=== PATIENT | male | born 1960 | race Caucasian/White ===

== ENCOUNTER → 2018-03-28 | Outpatient (CLI) | payer OTHER ==
--- NOTE | 2018-03-29 10:12 | ECHOF ---
Referral Reason:R06.02 Shortness of breath MEASUREMENTS -------- HEIGHT: 182.9 cm WEIGHT: 103.9 kg BP: RVIDd: 2.7 cm (< 3.3) IVSd: 1.3 cm (0.6 - 1.1) LVIDd: 4.3 cm (3.9 - 5.3) LVPWd: 1.2 cm (0.6 - 1.1) IVSs: 1.5 cm LVIDs: 3.1 cm LVPWs: 1.5 cm LA Diam: 3.1 cm (2.7 - 3.8) Ao Diam: 3.4 cm (2.0 - 3.7) AV Cusp: 2.2 cm (1.5 - 2.6) LA Diam: 3.3 cm (2.7 - 3.8) MV EXCURSION: 10.759 mm (> 18.000) MV EF SLOPE: 82 mm/s (70 - 150) EPSS: 0.3 cm MV E Polo: 0.33 m/s MV DecT: 214 ms MV A Polo: 0.68 m/s MV E/A Ratio: 0.49 RAP: 5.00 mmHg RVSP: 10.74 mmHg FINDINGS -------- Sinus rhythm. This was a technically adequate study. The left ventricular size is normal. There is mild concentric left ventricular hypertrophy. Overa ll left ventricular systolic function is normal with, an EF between 55 - 60 %. The right ventricle is normal in size. The left atrial size is normal. The right atrial size is normal. The aortic valve is trileaflet, and appears structurally normal. No aortic stenosis or regurgitation. Mild mitral annular calcification present. Mild mitral regurgitation is present. Mild tricuspid regurgitation present. There is no evidence of pulmonary hypertension. The right v entricular systolic pressure, as measured by Doppler, is 10.74mmHg. There is no pulmonic regurgitation present. The aortic root size is normal. Echo free space represents a pericardial fat pad. CONCLUSIONS -------- 1. This was a technically adequate study. 2. The left ventricular size is normal. 3. There is mild concentric left ventricular hypertrophy. 4. Overall left ventricular systolic function is normal with, an EF between 55 - 60 %. 5. The aortic valve is trileaflet, and appears structurally normal. No aortic stenosis or regurgitati on. 6. Mild mitral annular calcification present. 7. Mild mitral regurgitation is present. 8. Mild tricuspid regurgitation present. 9. There is no evidence of pulmonary hypertension. 10. The right ventricular systolic pressure, as measured by Doppler, is 10.74mmHg. 11. There is no pulmonic regurgitation present. 12. The aortic root size is normal. 13. Echo free space represents a pericardial fat pad. [employer]: Doris Valles RDCS
== END | disposition home or self-care (01) ==
LOC: RADECHMAIN 12:23
PROVIDERS: ATTEND Family Medicine
DX: I08.1 Rheumatic disorders of both mitral and tricuspid valves (principal)
CPT/HCPCS: 93306

== ENCOUNTER → 2019-07-28 | Day surgery (SDC) | payer OTHER ==
[2019-07-23 15:52] VITALS: BMI 28.5
[~2019-07-28] MED LIST: LACTATED RINGERS 1,000 ML IV SCH; LIDOCAINE 1% 20 ML VIAL (10MG/ML) FOR IV START INTRADERMA ONE; LIDOCAINE 1% INJ 10MG/ML (20 ML MDV) ONE; PROPOFOL 10 MG/ML 20 ML VIAL IV ONE
[2019-07-28 09:44] VITALS: TEMP 97.9
--- NOTE | 2019-07-28 11:20 | P.PCN ---
Date of Procedure: 07/28/19 Description of Procedure: BRIEF HISTORY: Patient is a 58-year-old pleasant male scheduled for an elective colonoscopy as a part of screening for malignant neoplasm of the colon. On questioning the patient does report prior colonoscopies with his last 3 years ago per his recollection denies any change in bowel habits, blood per rectum, abdominal pain and a family history of colon cancer PROCEDURE PERFORMED: Colonoscopy with polypectomy. PREOPERATIVE DIAGNOSIS: Screening for malignant neoplasm of the colon. ESTIMATED BLOOD LOSS: Minimal. IV sedation per Anesthesia. PROCEDURE: After informed consent was obtained, the patient, was brought into the endoscopy unit. IV sedation was administered by Anesthesia under continuous monitoring. Digital rectal examination was normal. Initially the Olympus CF-190 flexible video colonoscope was then inserted in the rectum, gradually advanced into the cecum without any difficulty. Careful examination was performed as the scope was gradually being withdrawn. Ileocecal valve and the appendiceal orifice were visualized and appeared normal. Prep was excellent. Mucosa of the cecum, ascending colon, transverse colon, descending colon, sigmoid colon, and rectum appeared normal. Diminutive 2 mm cecal polyp removed with cold forcep polypect wenceslao. 2 diminutive sessile rectal polyps removed with forceps polypectomy. Retroflexion was performed in the rectum and no lesions were seen. The patient tolerated the procedure well. IMPRESSION: 3 diminutive polyps cecum and rectum were removed with cold forceps. Normal-appearing colon from rectum to cecum. RECOMMENDATIONS: Findings of this examination were discussed with the patient and his parents. Okay to resume diet. Await pathology from polypectomies. Repeat colonoscopy in 3-5 years pending pathology from polypectomys.
[2019-07-28 11:38] VITALS: BP 120/79; PULSE 82; RESP 18
== END | disposition home or self-care (01) ==
LOC: ORWHC2ENDO 09:19
PROVIDERS: ATTEND Internal Medicine
DX: Z12.11 Encounter for screening for malignant neoplasm of colon (principal); D12.0 Benign neoplasm of cecum; K63.5 Polyp of colon; K21.9 Gastro-esophageal reflux disease without esophagitis; D86.9 Sarcoidosis, unspecified; F17.210 Nicotine dependence, cigarettes, uncomplicated; Z88.5 Allergy status to narcotic agent; Z79.899 Other long term (current) drug therapy
CPT/HCPCS: 88305; 45380; J2001; J2704

== ENCOUNTER → 2021-07-14 | Outpatient (CLI) | payer OTHER ==
--- NOTE | 2021-07-15 08:58 | CTL ---
EXAMINATION TYPE: CT Low Dose Lung DATE OF EXAM ORDERED: 07/14/2021 HISTORY: 60-year-old male Lung cancer screening. Z87.891 Personal history of tobacco use CT DLP: 98.[address] CTDI: 2.6 mGy Automated exposure control for dose reduction was used. SCREENING VISIT: Baseline COMPARISON: None TECHNIQUE: Low dose computed tomography scan was performed through the chest with coronal and sagitta l reconstructions. CT DIAGNOSTIC QUALITY: Satisfactory FINDINGS: Heart normal size without pericardial effusion. Aorta normal caliber with conventional arch vessel branching anatomy. Scattered nonenlarged and borderline sized mediastinal lymph nodes, largest lower right paratracheal measuring 1 cm, probably reactive/post inflammatory. Mild bilateral gynecomastia. Benign calcified granuloma posterior right midlung. Mild emphysematous change. Mild diffuse bronchial wall thickening. 1 cm peripheral right midlung pulmonary nodule, axial image 126 with some contiguous 6 mm nodularity, axial image 125. Couple 5 mm satellite nodules are present, axial image 120 and 130 just adjacent. Minimal biapical pleural-parenchymal scarring. No consolidation or pleural effusion. Visualized upper abdomen shows low-attenuation of the hepatic parenchyma suggesting fatty infiltratio n. Questionable 1.7 cm density in the mid liver, axial image 66. Bones: No osseous destructive process. IMPRESSION: 1. LungRADS Category 4A ( Probably suspicious, 5-15% chance of malignancy). A 1 cm right midlung nodu le with contiguous 6 mm nodularity and a couple 5 mm satellite nodules just adjacent. Three-month fol low-up low-dose CT chest recommended to exclude early neoplasm. 2. COPD with mild emphysema. Recommend smoking cessation. 3. Hepatic steatosis. Questionable 1.7 cm lesion mid liver more inferiorly partially imaged. CT LUNG RAD AND CT CHEST RECOMMENDATION: Lung-Rad 4A Suspicious: Follow-up 3 month LDCT or PET/CT may be used when there is a > 8 mm solid component. S Modifier (other clinically significant findings): S, liver ultrasound recommended.
== END | disposition home or self-care (01) ==
LOC: RADCTMAIN 17:28
DX: R91.1 Solitary pulmonary nodule (principal); J43.9 Emphysema, unspecified; K76.0 Fatty (change of) liver, not elsewhere classified; Z87.891 Personal history of nicotine dependence
CPT/HCPCS: 71271

== ENCOUNTER → 2021-11-18 | Outpatient (CLI) | payer OTHER ==
--- NOTE | 2021-11-18 12:59 | CT ---
EXAMINATION TYPE: CT ChestAbdPelvis w con DATE OF EXAM: 11/18/2021 COMPARISON: 07/14/2020 HISTORY: Solitary pulmonary nodule, liver disease CT DLP: 2243.3 mGycm CONTRAST: CT scan of the chest, abdomen and pelvis is performed with Oral Contrast and with IV Contrast, patien t injected with 100 mL of Isovue 300. CT Chest: LUNGS: 1.1 cm nodule right upper lobe image 15 of 57. The prior measurement of 1 cm. Stable and 9.4 m m nodule right upper lobe persists 9.8 mm previously. Adjacent 4 mm nodule is unchanged as well as an adjacent 3 mm nodule. No new nodules identified. Postinflammatory change right upper lobe medially and right middle lobe. Lingular postinflammatory ch anges noted. MEDIASTINUM: Thoracic aorta is of normal caliber. The heart is not enlarged. No evidence for media stinal mass or adenopathy. HILAR STRUCTURES: No evidence for mass. No hilar adenopathy is appreciated. OTHER: No significant abnormality. CONTRAST CT ABDOMEN AND PELVIS FINDINGS: LIVER/GB: There is evidence of hepatic steatosis. Hemangioma present in the medial segment left hepa tic lobe measuring 1.6 cm. No calcified gallstones. No additional space occupying hepatic lesion. Bi liary tree is of normal caliber. PANCREAS: No inflammation. No distinct mass. SPLEEN: No splenic enlargement. No lesion seen. ADRENALS: No nodule. No thickening. KIDNEYS/BLADDER: No hydronephrosis. No nephrolithiasis. Simple cyst upper pole left kidney measures 2.5 cm. BOWEL: Normal appendix. Normal bowel caliber. No inflammation. GENITAL ORGANS: No gross abnormality. LYMPH NODES: No greater than 1cm abdominal or pelvic lymph nodes are appreciated. AORTA: No significant abnormality. OSSEOUS STRUCTURES: No significant abnormality is seen. OTHER: No significant additional abnormality is seen. IMPRESSION: 1. Stable nodularity as noted above continued follow-up is advised with low dose CT in 3 months. 2. Hepatic steatosis and hepatic hemangioma.
== END | disposition home or self-care (01) ==
LOC: RADCTMAIN 10:37
DX: D18.00 Hemangioma unspecified site (principal); K76.0 Fatty (change of) liver, not elsewhere classified
CPT/HCPCS: 71260; 74177; Q9967

== ENCOUNTER → 2022-07-17 | Outpatient (CLI) | payer OTHER ==
--- NOTE | 2022-07-17 14:36 | CTL ---
EXAMINATION TYPE: CT Low Dose Lung DATE OF EXAM ORDERED: 07/17/2022 COMPARISON: 07/14/21 HISTORY: . Low Dose CT Lung Screening CT DLP: [address] CTDI: 2.6 mGy IV CONTRAST USED: None. SCREENING VISIT: First visit COMPARISON: None. TECHNIQUE: Low dose computed tomography scan was performed through the chest at 1 millimeter thick se ctions and reconstructed images in the coronal plane at [address] DIAGNOSTIC QUALITY: Satisfactory FINDINGS: LUNG NODULES: Stable 9 mm right upper lobe pulmonary nodule image 120 02[birth year]/1976 versus 9.8 mm previous ly. A couple of sub-5 mm adjacent satellite pulmonary nodules. Stable nodularity right upper lobe rashi suring 1 cm image 86 of 376. Calcified pulmonary nodule right lower lobe pleural-based. No new nodule s present. LUNGS: COPD: Severity: Mild Fibrosis: Severity:None Lymph nodes: None Other findings: None RIGHT PLEURAL SPACE: Effusion: None Calcification: None Thickening: None Pneumothorax: None LEFT PLEURAL SPACE: Effusion: None Calcification: None Thickening: None Pneumothorax: None HEART: Heart Size: Mildly enlarged Coronary calcification: Mild Pericardial effusion: None OTHER FINDINGS: Upper abdomen: No significant abnormality Bony thorax: Degenerative changes Supraclavicular region: No significant abnormalityOther: No significant abnormalityI IMPRESSION: Stable nonspecific pulmonary nodularity. Given category 3 or 4 nodule unchanged for great er than or equal 3 months New Category is lung RADS 2. FOLLOW UP CT CHEST RECOMMENDATION: Follow-up screening in one year CT LUNG RAD: LUNG RAD CATEGORY 2 benign appearance or behavior
== END | disposition home or self-care (01) ==
LOC: RADCTMAIN 12:40
DX: Z12.2 Encounter for screening for malignant neoplasm of respiratory organs (principal); Z87.891 Personal history of nicotine dependence
CPT/HCPCS: 71271

== ENCOUNTER → 2022-11-06 | Outpatient (CLI) | payer OTHER ==
[2022-11-06 14:22] VITALS: BP 133/88; PULSE 84; RESP 18; TEMP 97.9
--- NOTE | 2022-11-06 15:02 | P.PAINPG ---
PQRS Measure Charge Sheet Comment: HISTORY OF PRESENT ILLNESS: 62 yr old male as a referral from the [facility] presents today w severe and chronic LBP secondary to DDD, spondylosis and facet arthropathy without myelopathy for evaluation. Pt states pain level is at 8 /10 in intensity, constant, localized in the neck to lower lumbar spine, sharp/shooting in character w shooting pain towards the BLEs. Pain is provoked by standing/walking for periods of 10 minutes or more, lifting, twisting, bending. Pain is alleviated by medications (Andrews 10/325 mg), heat, 3 sessions of PT in 2019 which were discontinued as he was experiencing lower extremity weakness and could not continue, massage therapy for sessions and 2019 which were ineffecti ve, home stretching regimen as tolerated, use of a cane for ambulation, repositioning and rest. Patient was provided a prescription for chiropractic treatments in the past but was rejected by the chiropractor. PMH: OA, Hyperlipidemia, GERD, Sarcoidosis PSH: Colonoscopy w Polypectomy (2018) SH: Daily tobacco use, No ETOH abuse, No illicit drug use. Hx of experience. FH: Non contributory All: Codeine Meds: See list REVIEW OF ORGAN SYSTEMS: CONSTITUTIONAL: No fevers or chills. No recent weight loss. NEUROLOGICAL: + numbness and tingling along the distal extremities. No seizure disorders or headaches. MUSCULOSKELETAL: + pain PSYCHIATRIC: Denies current depression or suicidal thoughts. Physical Examinations : Constitutional : Cooperative , not in acute distress . Neurologic : Cranial nerve II to XII intact. No focal neurological deficits. Psychiatric : alert & oriented x 3. Matching mood & appropriate affect. Judgment & insight intact. Musculoskeletal : Cervical Spine Motor strength in the deltoid and biceps: Normal right side. Normal Left side Motor strength biceps and the wrist extensors: Normal right side . Normal left side Motor strength in the triceps muscle: Normal right side. Normal left side Deep tendon reflexes: Normal at the biceps. Normal at Brachioradialis. Normal at triceps Vertebral body tenderness to deep palpation over Cervical facet loading test: positive bilaterally Spurling test: positive bilaterally Neck distraction test: positive bilaterally Kameron sign: positive bilaterally Lumbar spine Motor strength lower extremities ,thigh and legs 5/5 Right side , 5/5 Left side Deep tendon reflexes : Normal Knee Jerk. Normal Ankle Jerk Vertebral body tenderness over L3, L4, L5 Lumbar facet Loading Test: positive Right > positive Left Range of motion of the lumbar spine Flexion 30 degrees, extension 10 degrees Straight Leg Raise test: Left/ Right positive at degree Taniya test: positive right / positive left. Severe tenderness over the Sacroiliac joint on the Right / Left sides Gaenslen test: positive bilaterally Seated flexion test: positive bilaterally. Sacral spine : Severe tenderness over the Sacroiliac joint: right side / left side Range of motion: Flexion of the lumbar spine <60 degrees Range of motion: Extension of the lumbar spine <20 degrees Gaenslen's Test positive Vincenzo's Test positive Taniya test: positive right side / left side Thigh Thrust Test Sacral Thrust Test Imaging: None on file Assessment/ Plan : Lumbar DDD Recommendation of x ray of lumbar spine re: M51.36 script provided. May need additional testing if indicated. May return to this clinic within 2-4 wks. All questions answered. I have spent greater than 30 minutes on patient care today. Dr Arevalo was available by phone for the evaluation of this patient. The time was used to review the medical records including relevant urine studies and Prescription history (MAPs), review of the available imaging, evaluation and examination of the patient, coordination of care with the medical staff and if applicable referring physicians, as well as creation of the medical record PQRS Narrative: Smoking Status Current every day smoker Home Medications: Ambulatory Orders Gabapentin [Neurontin] 400 mg PO TID 07/23/19 HYDROcodone/APAP 10-325MG [Andrews 10-325] 1 tab PO Q4HR PRN 07/23/19 Indomethacin [Indocin] 50 mg PO TID 07/23/19 Omeprazole 20 mg PO DAILY PRN 07/23/19 SUMAtriptan succinate [Imitrex] 50 mg PO ONCE PRN 07/23/19 Controlled Substance Measures - Controlled Substance Measures Is patient prescribed a controlled substance at discharge?: No
--- NOTE | 2022-11-06 15:58 | XR ---
EXAMINATION TYPE: XR lumbar spine 2 or 3V DATE OF EXAM: 11/06/2022 COMPARISON: None HISTORY: Low back pain TECHNIQUE: 3 view lumbar spine FINDINGS: There are 5 lumbar-type vertebral bodies. Pedicles are intact. Disc space narrowing is pres ent L5-S1. Minimal posterior disc space narrowing is present L4-5. Vertebral body heights are preserv ed. IMPRESSION: 1. Degenerative disc changes lower lumbar spine
== END ==
LOC: PNWHC3 13:38
PROVIDERS: ATTEND Specialist
DX: M51.36 Other intervertebral disc degeneration, lumbar region (principal); M19.90 Unspecified osteoarthritis, unspecified site; E78.5 Hyperlipidemia, unspecified; K21.9 Gastro-esophageal reflux disease without esophagitis; Z88.5 Allergy status to narcotic agent; F17.200 Nicotine dependence, unspecified, uncomplicated
CPT/HCPCS: 72100; 99211

== ENCOUNTER → 2022-11-15 | Outpatient (CLI) | payer OTHER ==
--- NOTE | 2022-11-15 20:13 | MR ---
EXAMINATION TYPE: MR lumbar spine wo con DATE OF EXAM: 11/15/2022 8:07 PM COMPARISON: CT 11/18/2021 . CLINICAL INDICATION:Male, 62 years old with history of M51.36 INTERVERTEBRAL DISC DEGENERATION, LUMBA R RE; TECHNIQUE: Multi planar, multi sequence imaging was performed utilizing: T1-weighted, T2-weighted, a nd turbo inversion recovery imaging of the lumbar spine. IV Contrast: None. FINDINGS: Alignment: The lumbar vertebral bodies have preserved heights and alignment. Cord: The conus medullaris and the distal spinal cord appear unremarkable with regards to their signa l intensity and morphology. Bones/Discs: Scattered subcentimeter probable meningiomas which are high T1 high T2 signal within S1, L2 and T12. Multilevel degenerative disc disease is noted and most pronounced at the L5-S1. Interve rtebral disc signal is maintained. L1-L2: No evidence of significant spinal canal stenosis or neural foraminal stenosis. L2-L3: No evidence of significant spinal canal stenosis or neural foraminal stenosis. L3-L4: Disc bulge and facet joint arthropathy without spinal canal stenosis and mild bilateral neural foraminal stenosis. L4-L5: Disc bulge and facet joint arthropathy result in mild spinal canal and moderate bilateral neur al foraminal stenosis. L5-S1: Asymmetric right disc bulge with facet joint arthropathy without significant spinal canal sten osis moderate right and mild to moderate left neural foraminal stenosis. Other findings: Left high T2 signal renal cyst. IMPRESSION: 1. No definitive evidence of disc herniation or significant spinal canal stenosis. 2. Multilevel disc degeneration with associated osteoarthritic changes with neural foraminal stenosi s worse at L4-L5 and L5 5 S1.
== END | disposition home or self-care (01) ==
LOC: RADMRIMAIN 18:54
PROVIDERS: ATTEND Physician Assistant Medical
DX: M51.36 Other intervertebral disc degeneration, lumbar region (principal); M47.816 Spondylosis without myelopathy or radiculopathy, lumbar region; M48.061 Spinal stenosis, lumbar region without neurogenic claudication; M99.73 Connective tissue and disc stenosis of intervertebral foramina of lumbar region
CPT/HCPCS: 72148

== ENCOUNTER 2023-02-20 11:45 | Day surgery (SDC) | payer OTHER ==
[2023-02-16 15:19] VITALS: BMI 34.9
[~2023-02-20 11:45] MED LIST changes: +LIDOCAINE 1% (10MG/ML) FOR IV START INTRADERMA PRN; -LIDOCAINE 1% 20 ML VIAL (10MG/ML) FOR IV START INTRADERMA ONE; -LIDOCAINE 1% INJ 10MG/ML (20 ML MDV) ONE; -PROPOFOL 10 MG/ML 20 ML VIAL IV ONE
[2023-02-20 12:21] VITALS: RESP 18; TEMP 97.4
[2023-02-20] MEDS ORDERED: methylPREDNISolone ACETATE 80 MG/ML 1 ML VIAL ONE (12:44)
[2023-02-20] MEDS ORDERED: IOPAMIDOL M200 10 ML VIAL ONE (12:44)
--- NOTE | 2023-02-20 12:53 | P.PCN ---
Date of Procedure: 02/20/23 Procedure(s) Performed: PREOPERATIVE DIAGNOSIS: 1- Lumbar Degenerative Disc Diseases 2-Lumbar spondylosis with Facet arthropathy without myelopathy. POSTOPERATIVE DIAGNOSIS: 1-lumbar degenerative disc disease. 2-lumbar spondylosis with facet arthropathy without myelopathy. PROCEDURE 1. Lumbar epidural steroid injection under fluoroscopic guidance at the L4-5 level. (Fluoroscopy imaging was available in radiology department) 2. Lumbar epidurogram. ANESTHESIA: The cane 1% 3 mL only EBL: Minimal PROCEDURE INDICATION: The patient with low back pain and radiculitis symptoms unresponsive to conservative treatment. Fluoroscopy was used to optimize visualization of the needle placement and to maximize safety. PROCEDURE DESCRIPTION / TECHNIQUE: The patient was seen and identified in the preoperative area. Risks, benefits, complications including but not limited to infections ,bleeding ,allergic reaction to the medications ,nerve damage and not complete pain releife , and alternatives were discussed with the patient. The patient agreed to proceed with the procedure and signed the consent, and vital signs were stable. Patient was taken to the OR and time out was completed. The patient was placed in the prone position on procedure table and a pillow was placed under the abdomen to reduce lumbar lordosis. The lumbosacral area was prepped and draped in the usual sterile fashion.ere closely monitored during the procedure.. Vital signs was monitered during the entire procedure. Using anterior-posterior fluoroscopy, the L4-5 interlaminar space was identified and the skin over this site was marked and then infiltrated with 1% lidocaine subcutaneously. Subsequently, a 20-gauge Tuohy epidural needle was inserted and advanced toward the epidural space using the ``Loss of resistance technique and guided by AP and lateral fluoroscopy. The correct needle position in the epidural space was verified with the injection of 2 mL of the water soluble contrast dye Isovue 200 contrast and observing an excellent epidurogram with the epidural spread of the dye, after negative aspiration for blood and CSF and in the absence of paresthesias. Again after negative aspiration, a 6 ml mixture containing 80 mg of Depo-medrol ( Preservetive Free ), and 2 ml of preservative free Normal Saline, and 2 ml of preservative free lidocaine 1% solution was injected and a washout of epidurogram was seen. Needle was withdrawn intact, skin was cleansed, and bandages were applied. COMPLICATIONS: None DISPOSITION / PLANS: The patient was placed in a supine position and transferred to the recovery area in a stable condition for observation. There was no evidence of lower extremity motor or sensory deficit after the procedure. Patient was discharged from the recovery room after meeting discharge criteria. Home discharge instructions were given to the patient by the staff. The patient was reexamined prior to discharge. The patient will schedule a follow up in the clinic in 2-4 weeks.
[2023-02-20 13:11] VITALS: BP 124/78; PULSE 75
--- NOTE | 2023-02-20 13:15 | FL ---
Intraoperative/procedural fluoroscopic services were provided for lumbar epidural steroid injection. Total fluoroscopy time is 1 second with a total of 1 submitted image to PACS. Total DAP 0.47. Please see the operative note for further details.
== END 2023-02-20 13:16 | disposition home or self-care (01) ==
LOC: ORPAIN 11:45
PROVIDERS: ATTEND Specialist
DX: M51.16 Intervertebral disc disorders with radiculopathy, lumbar region (principal); M47.26 Other spondylosis with radiculopathy, lumbar region; Z88.5 Allergy status to narcotic agent
CPT/HCPCS: 62323; J1040; Q9966

== ENCOUNTER → 2023-03-15 | Outpatient (CLI) | payer OTHER ==
--- NOTE | 2023-03-15 14:20 | P.PAINPG ---
PQRS Measure Charge Sheet Comment: A 62 yr old male with a history of severe and chronic LBP x yrs d/t injury secondary to lumbar DDD and spondylosis with facet arthropathy without myelopathy presents today for evaluation s/p AMINA L4-L5. Pt states he experienced 20% pain relief x 3 wks s/p procedure. Pain level is provoked at 6/10 in intensity, constant, localized in the lumbar spine, achy in character w shooting towards the BLEs. Pain is alleviated with medications (Clifton, Neurontin, Mobic), heat, ice, PT x 5 sessions in the past, massage at home as needed, use of a cane for ambulatory assistance, home exercise regimen as tolerated, reclining, repositioning and rest. Interventional pain procedures completed include AMINA L4-5 Patient is currently on Clifton TID, Neurontin, Mobic Patient denies any side effects of the medication(s), denies excessive drowsiness or sleepiness, denies suicidal ideation and reports that the current pain medication is helping to control the pain and improve activities of daily living. Patient denies any motor or sensory deficits. Patient denies any fever or night sweats, denies any change in the bowel movements or urination. Physical Examination: -Constitutional: Cooperative. Not in acute distress . - Neurologic: Cranial nerve II to XII intact. No focal neurological deficits. - Psychatric: Alert & oriented x 3. Matching mood & appropriate affect. Judgment and insight intact. - Musculoskeletal: Cervical spine: Muscle bulk/ tone/ strength in the bilateral upper extremities normal Vertebral body tenderness to palpation over Spurling test positive Distraction test positive Facet loading test positive TTP Thoracic spine Muscle bulk / tone/ strength in the bilateral paraspinal muscles normal Vertebral body tender to palpation over Facet loading test positive TTP Lumbar spine: Motor bulk/ tone/ strength lower extremities , thigh and legs : 5/5 Deep tendon reflexes : Normal Knee Jerk. Normal Ankle Jerk . Vertebral body tenderness to palpation over L5 Lumbar Facet Loading Test positive Straight Leg Raise: positive at 30 degrees right side/ left side Gaenslen's Test positive Sacral spine : Severe tenderness over the Sacroiliac joint: right side / left side Range of motion: Flexion of the lumbar spine <60 degrees Range of motion: Extension of the lumbar spine <20 degrees Gaenslen's Test positive right side / left side Taniya test: positive right side / left side Thigh Thrust Test positive right side / left side Sacral Thrust Test positive right side / left side Assessment and plan: Chronic LBP secondary to lumbar DDD, spondylosis with facet arthropathy without myelopathy Recommendation of BL TFESI L5-S1 #1. May need a series of injections for optimal pain relief. Risks, benefits of procedure discussed and pt verbalized understanding. Admits to anticoagulant use or medical history of diabetes. Protocol for discontinuation/ continuation of medications ilsa procedure discussed. All questions answered. I have spent less than 30 minutes on patient care today. Dr Arevalo was available by phone for the evaluation of this patient. The time was used to review the medical records including relevant urine studies and Prescription history (MAPs), review of the available imaging, evaluation and examination of the patient, coordination of care with the medical staff and if applicable referring physicians, as well as creation of the medical record PQRS Narrative: Smoking Status Current every day smoker Hx Alcohol Use (MH) No Home Medications: Ambulatory Orders Gabapentin [Neurontin] 400 mg PO TID 07/23/19 HYDROcodone/APAP 10-325MG [Clifton 10-325] 1 tab PO Q4HR PRN 07/23/19 Indomethacin [Indocin] 50 mg PO TID 07/23/19 Omeprazole 20 mg PO DAILY PRN 07/23/19 SUMAtriptan succinate [Imitrex] 50 mg PO ONCE PRN 07/23/19 Meloxicam [Mobic] 7.5 mg PO DAILY 02/16/23 Sinus Medication 1 tab PO DAILY PRN 02/16/23 Controlled Substance Measures - Controlled Substance Measures Is patient prescribed a controlled substance at discharge?: No
[2023-03-15 14:24] VITALS: BP 130/69; PULSE 82; RESP 16; TEMP 98.2
== END ==
LOC: PNWHC3 13:39
PROVIDERS: ATTEND Specialist
DX: M51.36 Other intervertebral disc degeneration, lumbar region (principal); M47.816 Spondylosis without myelopathy or radiculopathy, lumbar region; G89.29 Other chronic pain; F17.200 Nicotine dependence, unspecified, uncomplicated; Z88.5 Allergy status to narcotic agent
CPT/HCPCS: 99211

== ENCOUNTER 2023-05-15 12:34 | Day surgery (SDC) | payer OTHER ==
[2023-05-10 16:38] VITALS: BMI 33.9
[2023-05-15 13:20] VITALS: RESP 16; TEMP 97.5
[2023-05-15] MEDS ORDERED: IOPAMIDOL M200 10 ML VIAL ONE (13:31)
[2023-05-15] MEDS ORDERED: methylPREDNISolone ACETATE 80 MG/ML 1 ML VIAL ONE (13:31)
--- NOTE | 2023-05-15 13:46 | P.PCN ---
Date of Procedure: 05/15/23 Procedure(s) Performed: PREOPERATIVE DIAGNOSIS: 1-Lumbar radiculopathy . 2-lumbar degenerative disc disease. 3-lumbar spondylosis with lumbar facet arthropathy without myelopathy POSTOPERATIVE DIAGNOSIS: 1-lumbar radiculopathy. 2-lumbar degenerative disc disease. 3-lumbar spondylosis with facet arthropathy without myelopathy PROCEDURE 1. Transforaminal epidural steroid injection under fluoroscopic guidance at bilateral L5-S1 level. (Fluoroscopy images stored on file in the radiology Department ) 2. Lumbar epidurogram . ANESTHESIA: Local with 1% lidocaine 3 ml. EBL: Minimal PROCEDURE INDICATION: The patient with low back pain and radiculopathy symptoms unresponsive to conservative treatment. PROCEDURE DESCRIPTION / TECHNIQUE: The patient was seen and identified in the preoperative area. Risks, benefits, complications, and alternatives were discussed with the patient. The patient agreed to proceed with the procedure and signed the consent., and vital signs were stable. Patient was taken to the OR and time out was completed. The patient was placed in the prone position on procedure table and a pillow was placed under the abdomen to reduce lumbar lordosis. The lumbosacral area was prepped and draped in the usual sterile fashion. Critical pause was taken. Vital signs were closely monitored during the procedure. Using oblique fluoroscopy, the chin of the `IlanJose G dog at right L5-S1 level was identified, and the skin and deeper tissues just below was localized with 1% lidocaine. Subsequently, a 22-gauge 5-inch spinal needle was advanced under a tunneled view fluoroscopic guidance just underneath the chin of the `Niruy dog at the right L5-S1 Under lateral fluoroscopy, the needle was then advanced to the posterior border of the interforaminal space. After negative aspiration of CSF and blood and with no paresthesias, 1 mL Isovue 200 contrast dye was injected excellent epidurogram and outlining of the nerve root Subsequently, 3 mL of block solution containing 40 mg Depo-Medrol and 2 mL of 0.9% normal saline PF was injected. Needle was removed and the same procedure was repeated at the left L5-S1 level . At the end of the procedure, skin was cleansed, and bandages were applied. COMPLICATIONS:none DISPOSITION / PLANS: The patient was placed in a supine position and transferred to the recovery area in a stable condition for observation. There was no evidence of lower extremity motor or sensory deficit after the procedure. Patient was discharged from the recovery room after meeting discharge criteria. Home discharge instructions were given to the patient by the staff. The patient was reexamined prior to discharge.
--- NOTE | 2023-05-15 14:02 | FL ---
EXAMINATION TYPE: FL guided pain mgmt statistic DATE OF EXAM: 05/15/2023 CLINICAL HISTORY: Low back pain. TECHNIQUE: Fluoroscopy. COMPARISON: None. FINDINGS: Fluoroscopic guidance was provided during pain relief procedure performed by Dr. Arevalo . A total of 10 seconds of fluoroscopic time was utilized during the procedure and two spot images a re acquired. Images acquired shows needle localization with contrast injection in the periphery of t he L5 level. IMPRESSION: As Above. TOTAL DAP = 0.91803.
[2023-05-15 14:03] VITALS: BP 142/89; PULSE 79
== END 2023-05-15 14:15 | disposition home or self-care (01) ==
LOC: ORPAIN 12:34
PROVIDERS: ATTEND Specialist
DX: M51.16 Intervertebral disc disorders with radiculopathy, lumbar region (principal); M47.26 Other spondylosis with radiculopathy, lumbar region; Z88.5 Allergy status to narcotic agent
CPT/HCPCS: 64483; J1040; Q9966

== ENCOUNTER → 2023-06-04 | Outpatient (CLI) | payer OTHER ==
[2023-06-04 14:39] VITALS: BP 150/87; PULSE 87; RESP 16
--- NOTE | 2023-06-04 14:42 | P.PAINPG ---
PQRS Measure Charge Sheet Comment: A 62 yr old male with a history of severe and chronic LBP x 2 yrs d/t injury secondary to lumbar DDD and spondylosis with facet arthropathy without myelopathy presents today for evaluation s/p BL TFESI L5-S1. Pt states he experienced 20% pain relief x 3 wks s/p procedure. Pain level is provoked at 7/10 in intensity, constant, localized in the lumbar spine, throbbing in character w shooting towards the B hips. Pain is alleviated with medications, heat, ice, PT integrated w massage x 5 sessions in 2020 which provoked intense pain, massage at home as needed, use of a cane for ambulatory assistance, use of a TENS unit at home, physician guided home exercise regimen 2-4 times a week since 2020 as tolerated, reclining, repositioning and rest. Oswestry axial pain score of 31 Interventional pain procedures completed include AMINA L4-5, BL TFESI L5-S1 Patient is currently on [place] TID, Neurontin, Mobic Patient denies any side effects of the medication(s), denies excessive drowsiness or sleepiness, denies suicidal ideation and reports that the current pain medication is helping to control the pain and improve activities of daily living. Patient denies any motor or sensory deficits. Patient denies any fever or night sweats, denies any change in the bowel movements or urination. Physical Examination: -Constitutional: Cooperative. Not in acute distress . - Neurologic: Cranial nerve II to XII intact. No focal neurological deficits. - Psychatric: Alert & oriented x 3. Matching mood & appropriate affect. Judgment and insight intact. - Musculoskeletal: Cervical spine: Muscle bulk/ tone/ strength in the bilateral upper extremities normal Vertebral body tenderness to palpation over Spurling test positive Distraction test positive Facet loading test positive TTP Thoracic spine Muscle bulk / tone/ strength in the bilateral paraspinal muscles normal Vertebral body tender to palpation over Facet loading test positive TTP Lumbar spine: Motor bulk/ tone/ strength lower extremities , thigh and legs : 5/5 Deep tendon reflexes : Normal Knee Jerk. Normal Ankle Jerk . Vertebral body tenderness to palpation Lumbar Facet Loading Test positive over BL L4-L5, L5-S1 Straight Leg Raise: positive at 30 degrees right side/ left side Gaenslen's Test positive Sacral spine : Severe tenderness over the Sacroiliac joint: right side / left side Range of motion: Flexion of the lumbar spine <60 degrees Range of motion: Extension of the lumbar spine <20 degrees Gaenslen's Test positive right side / left side Taniya test: positive right side / left side Thigh Thrust Test positive right side / left side Sacral Thrust Test positive right side / left side Assessment and plan: Chronic LBP secondary to lumbar DDD, spondylosis with facet arthropathy without myelopathy Recommendation of BL facet block of the medial branches L4-L5, L5-S1. May need a series of injections, up until RFA, for optimal pain relief. Risks, benefits of procedure discussed and pt verbalized understanding. Admits to anticoagulant use or medical history of diabetes. Protocol for discontinuation/ continuation of medications ilsa procedure discussed. All questions answered. I have spent less than 30 minutes on patient care today. Dr Arevalo was available by phone for the evaluation of this patient. The time was used to review the medical records including relevant urine studies and Prescription history (MAPs), review of the available imaging, evaluation and examination of the patient, coordination of care with the medical staff and if applicable referring physicians, as well as creation of the medical record PQRS Narrative: Smoking Status Current every day smoker Hx Alcohol Use (MH) No Home Medications: Ambulatory Orders Gabapentin [Neurontin] 400 mg PO TID 07/23/19 HYDROcodone/APAP 10-325MG [[place] 10-325] 1 tab PO Q4HR PRN 07/23/19 Indomethacin [Indocin] 50 mg PO TID 07/23/19 Omeprazole 20 mg PO DAILY PRN 07/23/19 SUMAtriptan succinate [Imitrex] 50 mg PO ONCE PRN 07/23/19 Meloxicam [Mobic] 7.5 mg PO DAILY 02/16/23 Sinus Medication 1 tab PO DAILY PRN 02/16/23 Controlled Substance Measures - Controlled Substance Measures Is patient prescribed a controlled substance at discharge?: No
== END ==
LOC: PNWHC3 13:59
PROVIDERS: ATTEND Specialist
DX: M51.37 Other intervertebral disc degeneration, lumbosacral region (principal); M47.817 Spondylosis without myelopathy or radiculopathy, lumbosacral region; G89.29 Other chronic pain; F17.200 Nicotine dependence, unspecified, uncomplicated; Z88.5 Allergy status to narcotic agent
CPT/HCPCS: 99211

== ENCOUNTER 2023-06-21 10:04 | Day surgery (SDC) | payer OTHER ==
[2023-06-21 10:25] VITALS: TEMP 97.1
[2023-06-21] MEDS ORDERED: methylPREDNISolone ACETATE 40 MG/ML 1 ML VIAL ONE (10:48)
[2023-06-21] MEDS ORDERED: ROPIVACAINE 5 MG/ML 20 ML AMPULE ONE (10:48)
--- NOTE | 2023-06-21 11:01 | P.PCN ---
Date of Procedure: 06/21/23 Procedure(s) Performed: PREOPERATIVE DIAGNOSIS : 1- Lumbar spondylosis with Facet Arthropathy without myelopathy . 2- Lumber degenerative disc disease POSTOPERATIVE DIAGNOSIS: 1- Lumbar spondylosis with Facet Arthropathy without myelopathy . 2- Lumber degenerative disc disease PROCEDURE: Diagnostic bilateral L3 , L4 , and L5 medial branch block under fluoroscopy guidance(fluoroscopy images available in the radiology Department ) ( To target the facet joint between Bilateral L4-5 , and L5-S1 )# 1St ANESTHESIA:, Ropivacaine 0.5% 6 mL for skin and subcu infiltration. EBL: Minimal COMPLICATION: None PROCEDURE INDICATION: Chronic low back pain secondary to Facet arthropathy unresponsive to conservative treatment. PROCEDURE DESCRIPTION: the patient was seen and identified in the preop holding area , risks and benefits and possible complications of the procedure and alternative were discussed with the patient, and the patient agreed to proceed with the procedure and signed the consent and vital signs monitored during the procedure and fluoroscopy was used to maximize the benefit and accuracy of the needle placement, and sedation was given to decrease patient anxiety, patient was taken to the procedure room and placed in prone position vital signs monitored in the back prepped with chlorhexidine X3 then under strict sterile technique using a right oblique fluoroscopy ,the junction of the transverse process and the superior articulating process of the right L3 , L4 , and L5 vertebra which corresponding to the fluoroscopy image of the eye of the Jose G dog on the block side for the medial branches and subsequently , after local infiltration of skin and subcu tissuies with Ropivacaine 0.5 % , one mL at each level ,then 22-gauge Quincke-type needles , 3 needle was used , each one of them placed at the junction of the base of the transverse process and the superior articular process at the appropriate level, and the needle was advanced until the periosteum contacted, needle placement confirmed with AP oblique and lateral view and after appropriate needle placement confirmed, and after negative aspiration for heme and CSF and there was no paresthesia 1-1/2 mL of Ropivacaine 0.5% mixed with 20 mg Depo-Medrol , then half mL injected at each level after negative aspiration the needle subsequently removed and the same procedure repeated for the left side at left side at L3 , L4 and L5 levels. At the end of the procedure and the needles removed and a bandage applied after the skin was cleaned the cleaning solution patient taken to recovery room in stable condition and monitors in the recovery room for 20-30 minutes and discharged home in stable condition after discharge criteria met and patient will follow up with the pain clinic in 2-4 weeks
[2023-06-21 11:04] VITALS: BP 122/78; PULSE 73; RESP 16
--- NOTE | 2023-06-21 11:35 | FL ---
Intraoperative/procedural fluoroscopic services were provided for bilateral lumbar facet block. Total fluoroscopy time is 21.4 seconds with a total of 4 submitted images to PACS. Total DAP 0.15062 mGym2 . Please see the operative note for further details.
== END 2023-06-21 11:17 | disposition home or self-care (01) ==
LOC: ORPAIN 10:04
PROVIDERS: ATTEND Anesthesiology
DX: M51.36 Other intervertebral disc degeneration, lumbar region (principal); M47.816 Spondylosis without myelopathy or radiculopathy, lumbar region; G89.29 Other chronic pain; Z88.5 Allergy status to narcotic agent
CPT/HCPCS: 64493; 64494 ×2; J1030; J2795

== ENCOUNTER → 2023-07-16 | Outpatient (CLI) | payer OTHER ==
[2023-07-16 14:07] VITALS: BP 133/71; PULSE 82; RESP 15; TEMP 98
--- NOTE | 2023-07-16 15:06 | P.PAINPG ---
PQRS Measure Charge Sheet Comment: A 62 yr old male with a history of severe and chronic LBP x 2 yrs d/t injury secondary to lumbar DDD and spondylosis with facet arthropathy without myelopathy presents today for evaluation s/p BL TFESI L5-S1 #1. Pt states he experienced 80% pain relief x 24 hrs s/p procedure. Pain level is provoked at 7/10 in intensity, constant, localized in the lumbar spine, throbbing in character w shooting towards the B hips. Pain is alleviated with medications, heat, ice, PT integrated w massage x 5 sessions in 2020 which provoked intense pain, massage at home as needed, use of a cane for ambulatory assistance, use of a TENS unit at home, physician guided home exercise regimen 2-4 times a week since 2020 as tolerated, reclining, repositioning and rest. Oswestry axial pain score of 30. Interventional pain procedures completed include AMINA L4-5, BL TFESI L5-S1, BL MBB L3-L5 x1 Patient is currently on [place] TID, Neurontin, Mobic Patient denies any side effects of the medication(s), denies excessive drowsiness or sleepiness, denies suicidal ideation and reports that the current pain medication is helping to control the pain and improve activities of daily living. Patient denies any motor or sensory deficits. Patient denies any fever or night sweats, denies any change in the bowel movements or urination. Physical Examination: -Constitutional: Cooperative. Not in acute distress . - Neurologic: Cranial nerve II to XII intact. No focal neurological deficits. - Psychatric: Alert & oriented x 3. Matching mood & appropriate affect. Judgment and insight intact. - Musculoskeletal: Cervical spine: Muscle bulk/ tone/ strength in the bilateral upper extremities normal Vertebral body tenderness to palpation over Spurling test positive Distraction test positive Facet loading test positive TTP Thoracic spine Muscle bulk / tone/ strength in the bilateral paraspinal muscles normal Vertebral body tender to palpation over Facet loading test positive TTP Lumbar spine: Motor bulk/ tone/ strength lower extremities , thigh and legs : 5/5 Deep tendon reflexes : Normal Knee Jerk. Normal Ankle Jerk . Vertebral body tenderness to palpation Lumbar Facet Loading Test positive over BL L4-L5, L5-S1 Straight Leg Raise: positive at 30 degrees right side/ left side Gaenslen's Test positive Sacral spine : Severe tenderness over the Sacroiliac joint: right side / left side Range of motion: Flexion of the lumbar spine <60 degrees Range of motion: Extension of the lumbar spine <20 degrees Gaenslen's Test positive right side / left side Taniya test: positive right side / left side Thigh Thrust Test positive right side / left side Sacral Thrust Test positive right side / left side Assessment and plan: Chronic LBP secondary to lumbar DDD, spondylosis with facet arthropathy without myelopathy Recommendation of BL facet block of the medial branches L4-L5, L5-S1 #2. May need a series of injections, up until RFA, for optimal pain relief. Risks, benefits of procedure discussed and pt verbalized understanding. Admits to anticoagulant use or medical history of diabetes. Protocol for discontinuation/ continuation of medications ilsa procedure discussed. All questions answered. I have spent less than 30 minutes on patient care today. Dr Arevalo was available by phone for the evaluation of this patient. The time was used to review the medical records including relevant urine studies and Prescription history (MAPs), review of the available imaging, evaluation and examination of the patient, coordination of care with the medical staff and if applicable referring physicians, as well as creation of the medical record PQRS Narrative: Smoking Status Current every day smoker Hx Alcohol Use (MH) No Home Medications: Ambulatory Orders Gabapentin [Neurontin] 400 mg PO TID 07/23/19 HYDROcodone/APAP 10-325MG [[place] 10-325] 1 tab PO Q4HR PRN 07/23/19 Indomethacin [Indocin] 50 mg PO TID 07/23/19 Omeprazole 20 mg PO DAILY PRN 07/23/19 SUMAtriptan succinate [Imitrex] 50 mg PO ONCE PRN 07/23/19 Meloxicam [Mobic] 7.5 mg PO DAILY 02/16/23 Sinus Medication 1 tab PO DAILY PRN 02/16/23 Controlled Substance Measures - Controlled Substance Measures Is patient prescribed a controlled substance at discharge?: No
== END ==
LOC: PNWHC3 13:36
PROVIDERS: ATTEND Specialist
DX: M51.37 Other intervertebral disc degeneration, lumbosacral region (principal); M47.817 Spondylosis without myelopathy or radiculopathy, lumbosacral region; F17.200 Nicotine dependence, unspecified, uncomplicated; G89.29 Other chronic pain; Z88.5 Allergy status to narcotic agent
CPT/HCPCS: 99211

== ENCOUNTER → 2023-07-25 | Outpatient (CLI) | payer OTHER ==
--- NOTE | 2023-07-25 19:41 | CTL ---
EXAMINATION TYPE: CT Low Dose Lung DATE OF EXAM: 07/25/2023 3:17 PM CLINICAL INDICATION:Male, 62 years old with history of Z87.891 PERSONAL HISTORY OF NICOTINE DEPENDENC E; tobacco use. 1 pack per day x 40 years , history of tobacco use. COMPARISON: 07/17/2022 TECHNIQUE: Multiple axial non-contrast scans were obtained from approximately the lung apices through the upper abdomen. Coronal and sagittal reformatted images were obtained. Low dose technique was uti lized. CT DLP: 69 mGycm, Automated exposure control for dose reduction was used. CT Contrast: Contrast used: None Oral contrast used: None FINDINGS: ======== Lack of intravenous contrast and low dose technique limits the evaluation of the vascular and soft ti ssue structures. LUNGS: No evidence of pulmonary fibrosis. No evidence of focal consolidation, pneumothorax or pleural effusion. Nodules: RUL: Right upper lung 9 mm pulmonary nodule with satellite nodule measuring 3 mm series 3 image 1 04 and 98. These are stable. Additional nodular-like change of the bifurcation of a vessel series 3 i mage 76 is not significantly changed. RML: None. RLL: None. CARTER: None. LLL: None. AIRWAY: Patent and unremarkable. HEART: Size within normal limits. MEDIASTINUM: No gross evidence of adenopathy. VASCULATURE: No aortic aneurysm. MUSCULOSKELETAL: No acute osseous abnormalities SOFT TISSUES/LYMPH NODES: Unremarkable. LOWER NECK: No significant findings. UPPER ABDOMEN: No significant findings. IMPRESSION: Stable right upper lung pulmonary nodules which are not significantly changed from 07/14/2021. CT LUNG RAD AND CT CHEST RECOMMENDATION: Lung-Rad 2 Benign Appearance or Behavior: Continue annual sc reening with LDCT in 12 months. S Modifier (other clinically significant findings): None Recommend smoking cessation (if current smoker), or continuation of smoking cessation (if prior smoke r). Annual screening for lung cancer with low-dose computed tomography is recommended in adults ages 55 to 77 years who have a 30 pack-year smoking history and currently smoke or have quit within the pa st 15 years. Screening should be discontinued once a person has not smoked for 15 years or develops a health problem that substantially limits life expectancy or the ability or willingness to have curat lamar lung surgery.
== END | disposition home or self-care (01) ==
LOC: RADCTMAIN 14:32
DX: Z12.2 Encounter for screening for malignant neoplasm of respiratory organs (principal); R91.8 Other nonspecific abnormal finding of lung field; F17.210 Nicotine dependence, cigarettes, uncomplicated
CPT/HCPCS: 71271

== ENCOUNTER → 2023-09-06 | Outpatient (CLI) | payer OTHER ==
[2023-09-06 13:40] VITALS: BP 102/67; PULSE 102; RESP 15; TEMP 98.4
--- NOTE | 2023-09-06 14:25 | P.PAINPG ---
PQRS Measure Charge Sheet Comment: A 62 yr old male with a history of severe and chronic LBP x 2 yrs d/t injury secondary to lumbar DDD and spondylosis with facet arthropathy without myelopathy presents today for evaluation s/p BL MBB L4-L5, L5-S1 #2. Pt states he experienced 100 % pain relief x 24 hrs s/p procedure. Pain level is provoked at 9/10 in intensity, constant, localized in the lumbar spine, throbbing in character w shooting towards the BL hips, L> R. Pain is alleviated with medications, heat, ice, PT integrated w massage x 5 sessions in 2020 which provoked intense pain, massage at home as needed, use of a cane for ambulatory assistance, use of a TENS unit at home, physician guided home exercise regimen 2-4 times a week since 2020 as tolerated, reclining, repositioning and rest. Oswestry axial pain score of 34. Interventional pain procedures completed include AMINA L4-5, BL TFESI L5-S1, BL MBB L3-L5 x2 Patient is currently on [place] TID, Neurontin, Mobic Patient denies any side effects of the medication(s), denies excessive drowsiness or sleepiness, denies suicidal ideation and reports that the current pain medication is helping to control the pain and improve activities of daily living. Patient denies any motor or sensory deficits. Patient denies any fever or night sweats, denies any change in the bowel movements or urination. Physical Examination: -Constitutional: Cooperative. Not in acute distress . - Neurologic: Cranial nerve II to XII intact. No focal neurological deficits. - Psychatric: Alert & oriented x 3. Matching mood & appropriate affect. Judgment and insight intact. - Musculoskeletal: Cervical spine: Muscle bulk/ tone/ strength in the bilateral upper extremities normal Vertebral body tenderness to palpation over Spurling test positive Distraction test positive Facet loading test positive TTP Thoracic spine Muscle bulk / tone/ strength in the bilateral paraspinal muscles normal Vertebral body tender to palpation over Facet loading test positive TTP Lumbar spine: Motor bulk/ tone/ strength lower extremities , thigh and legs : 5/5 Deep tendon reflexes : Normal Knee Jerk. Normal Ankle Jerk . Vertebral body tenderness to palpation Lumbar Facet Loading Test positive over BL L4-L5, L5-S1 Straight Leg Raise: positive at 30 degrees right side/ left side Gaenslen's Test positive Sacral spine : Severe tenderness over the Sacroiliac joint: right side / left side Range of motion: Flexion of the lumbar spine <60 degrees Range of motion: Extension of the lumbar spine <20 degrees Gaenslen's Test positive right side / left side Taniya test: positive right side / left side Thigh Thrust Test positive right side / left side Sacral Thrust Test positive right side / left side Assessment and plan: Chronic LBP secondary to lumbar DDD, spondylosis with facet arthropathy without myelopathy Recommendation of BL RFA L4-L5, L5-S1. Pt exhibited optimal pain relief w prior facet block procedures. Risks, benefits of procedure discussed and pt verbalized understanding. Admits to anticoagulant use or medical history of diabetes. Protocol for discontinuation/ continuation of medications ilsa procedure discussed. All questions answered. I have spent less than 30 minutes on patient care today. Dr Arevalo was available by phone for the evaluation of this patient. The time was used to review the medical records including relevant urine studies and Prescription history (MAPs), review of the available imaging, evaluation and examination of the patient, coordination of care with the medical staff and if applicable referring physicians, as well as creation of the medical record PQRS Narrative: Smoking Status Current every day smoker Hx Alcohol Use (MH) No Home Medications: Ambulatory Orders Gabapentin [Neurontin] 400 mg PO TID 07/23/19 HYDROcodone/APAP 10-325MG [[place] 10-325] 1 tab PO Q4HR PRN 07/23/19 Indomethacin [Indocin] 50 mg PO TID 07/23/19 Omeprazole 20 mg PO DAILY PRN 07/23/19 SUMAtriptan succinate [Imitrex] 50 mg PO ONCE PRN 07/23/19 Meloxicam [Mobic] 7.5 mg PO DAILY 02/16/23 Sinus Medication 1 tab PO DAILY PRN 02/16/23 Controlled Substance Measures - Controlled Substance Measures Is patient prescribed a controlled substance at discharge?: No
== END ==
LOC: PNWHC3 13:18
PROVIDERS: ATTEND Specialist
DX: M51.37 Other intervertebral disc degeneration, lumbosacral region (principal); M47.817 Spondylosis without myelopathy or radiculopathy, lumbosacral region; F17.200 Nicotine dependence, unspecified, uncomplicated; Z88.5 Allergy status to narcotic agent
CPT/HCPCS: 99211

== ENCOUNTER 2023-09-21 12:28 | Day surgery (SDC) | payer OTHER ==
[2023-09-21] MEDS ORDERED: LACTATED RINGERS 1,000 ML IV ONE (12:54)
[2023-09-21] MEDS ORDERED: LIDOCAINE 1% (10MG/ML) FOR IV START INTRADERMA ONE (12:54)
[2023-09-21 13:00] VITALS: TEMP 97.5
[2023-09-21] MEDS ORDERED: fentaNYL (PF) 50 MCG/ML 2 ML AMP ONE (13:29)
[2023-09-21] MEDS ORDERED: MIDAZOLAM 2 MG/2 ML VIAL ONE (13:29)
[2023-09-21] MEDS ORDERED: LACTATED RINGERS 1,000 ML IV SCH (13:30)
[2023-09-21] MEDS ORDERED: ROPIVACAINE 5MG/ML 20ML VIAL ONE (13:35)
[2023-09-21] MEDS ORDERED: IV FLUID CONTINUATION 400 ML IV ONE (14:12)
[2023-09-21 14:31] VITALS: RESP 20
--- NOTE | 2023-09-21 14:33 | P.PCN ---
Date of Procedure: 09/21/23 Description of Procedure: PREOPERATIVE DIAGNOSIS: 1-Lumbar Spondylosis with Facet Arthropathy without myelopathy. 2- Lumber degenerative disc disease. POSTOPERATIVE DIAGNOSIS: 1- Lumbar Spondylosis with Facet Arthropathy without myelopathy. 2- Lumber degenerative disc disease. PROCEDURES : Bilateral Radiofrequency thermocoagulation, L4 , and L5 medial branch, with fluoroscopic guidance (fluoroscopy images available in the radiology department) ( to denervate the facet joint at bilateral L4-5 ,and L5-S1 levels ). ANESTHESIA: Monitored anesthesia care as per anesthesia department EBL: Minimal PROCEDURE INDICATION: The patient with low back pain secondary to lumbar facet arthropathy who had more than 50% relief of her pain with previous diagnostic lumbar medial branch block with bupivacaine. PROCEDURE DESCRIPTION / TECHNIQUE: The patient was seen and identified in the preoperative area. Risks, benefits, complications, including but not limited to risk of infection ,bleeding , allergic reactions to the medications and no complete pain releife , and alternatives were discussed with the patient, the patient agreed to proceed with the procedure and signed the consent. IV was started. Vital signs remained stable throughout the procedure. Patient was taken to the OR and time out was completed. The patient was placed in the prone position on the procedure table. The lumber area was prepped and draped in the usual sterile fashion. . Vital signs were closely monitored during the procedure .IV sedation was used during the procedure to decrease patients anxiety. Using AP and then oblique fluoroscopy, the ``eye of the Jose G dog corresponding to the connection between the superior and transverse articular processes of right L4, and L5 were identified, marked, and localized with 1% lidocaine. Subsequently, a 18 [id number] radiofrequency cannula with a 10-mm active tip was advanced guided by fluoroscopy to each of the``eyes of the Jose G dog at right L4, and L5 and at the junction of superior articular process wi th right alq of the the sacrum. Each site then underwent sensory testing at 50 Hz and 0 to 1 volt and motor testing at 2.5 Hz and 0 to 3 volt with local stimulation, but no radicular symptoms down the legs. Thereafter each sites underwent radiofrequency thermocoagulation at 80 degrees celsius for 90 seconds after injecting 0.5% PF Ropivacaine 1ml, then after the thermocoagulation done , Cannulas were retracted The same procedure was repeated at the level of Left side. At the end of the procedure, the skin was cleansed and bandages were applied. COMPLICATIONS: No acute complications. DISPOSITION / PLANS: The patient was placed in a supine position and transferred to the recovery area in a stable condition for observation and was discharged from the recovery room after meeting discharge criteria. Home discharge instructions given to the patient by the staff. The patient was reexamined prior to discharge. The patient will schedule a follow up in the clinic in 4 weeks.
[2023-09-21 14:53] VITALS: BP 127/71; PULSE 68
--- NOTE | 2023-09-21 14:56 | FL ---
Intraoperative/procedural fluoroscopic services were provided bilateral lumbar rad frequency. Total f luoroscopy time is 16.5 seconds with a total of 5 submitted images to PACS. Total DAP [id number] mGym2. Please see the operative note for further details.
== END 2023-09-21 14:43 ==
LOC: ORPAIN 12:28
PROVIDERS: ATTEND Pain Medicine Interventional Pain Medicine
DX: M51.36 Other intervertebral disc degeneration, lumbar region (principal); M47.816 Spondylosis without myelopathy or radiculopathy, lumbar region; Z88.5 Allergy status to narcotic agent; I10 Essential (primary) hypertension; E78.5 Hyperlipidemia, unspecified; F17.210 Nicotine dependence, cigarettes, uncomplicated; D86.9 Sarcoidosis, unspecified; M19.90 Unspecified osteoarthritis, unspecified site; K21.9 Gastro-esophageal reflux disease without esophagitis; Z98.890 Other specified postprocedural states
CPT/HCPCS: 64635; 64636 ×2; J2250; J3010; J2795

== ENCOUNTER → 2024-01-07 | Outpatient (CLI) | payer OTHER ==
[2024-01-07 13:45] VITALS: BP 133/85; PULSE 96; RESP 16; TEMP 98
--- NOTE | 2024-01-07 14:36 | P.PAINPG ---
Objective - Vital Signs Vital signs: Intake & Output 01/06/24 01/07/24 01/07/24 18:59 06:59 18:59 Weight 111.584 kg PQRS Measure Charge Sheet Comment: A 63 yr old male with a history of severe and chronic LBP x 2 yrs d/t injury secondary to lumbar DDD and spondylosis with facet arthropathy without myelopathy presents today for evaluation s/p BL RFA L4-L5, L5-S1 Pt states he experienced 100 % pain relief s/p procedure. Pain level is provoked at 6/10 in intensity, constant, localized in the lumbar spine, throbbing in character w shooting towards the BL spine. Pain is alleviated with injections, medications, heat, ice, PT integrated w massage x 5 sessions in 2020 which provoked intense pain, massage at home as needed, use of a cane for ambulatory assistance, use of a TENS unit at home, physician guided home exercise regimen 2-4 times a week since 2020 as tolerated, reclining, repositioning and rest. Oswestry axial pain score of 34. Interventional pain procedures completed include AMINA L4-5, BL TFESI L5-S1, BL RFA L3-L5 (Sep 2023) Patient is currently on [place] TID, Neurontin, Mobic Patient denies any side effects of the medication(s), denies excessive drowsiness or sleepiness, denies suicidal ideation and reports that the current pain medication is helping to control the pain and improve activities of daily living. Patient denies any motor or sensory deficits. Patient denies any fever or night sweats, denies any change in the bowel movements or urination. Physical Examination: -Constitutional: Cooperative. Not in acute distress . - Neurologic: Cranial nerve II to XII intact. No focal neurological deficits. - Psychatric: Alert & oriented x 3. Matching mood & appropriate affect. Judgment and insight intact. - Musculoskeletal: Cervical spine: Muscle bulk/ tone/ strength in the bilateral upper extremities normal Vertebral body tenderness to palpation over Spurling test positive Distraction test positive Facet loading test positive TTP Thoracic spine Muscle bulk / tone/ strength in the bilateral paraspinal muscles normal Vertebral body tender to palpation over Facet loading test positive TTP Lumbar spine: Motor bulk/ tone/ strength lower extremities , thigh and legs : 5/5 Deep tendon reflexes : Normal Knee Jerk. Normal Ankle Jerk . Vertebral body tenderness to palpation over L4 Lumbar Facet Loading Test positive Straight Leg Raise: positive at 30 degrees right side/ left side Gaenslen's Test positive Sacral spine : Severe tenderness over the Sacroiliac joint: right side / left side Range of motion: Flexion of the lumbar spine <60 degrees Range of motion: Extension of the lumbar spine <20 degrees Gaenslen's Test positive right side / left side Taniya test: positive right side / left side Thigh Thrust Test positive right side / left side Sacral Thrust Test positive right side / left side Assessment and plan: Chronic LBP secondary to lumbar DDD, spondylosis with facet arthropathy without myelopathy Recommendation of AMINA L4-L5 #3. May need a series of injections for optimal pain relief. Risks, benefits of procedure discussed and pt verbalized understanding. Admits to anticoagulant use or medical history of diabetes. Protocol for discontinuation/ continuation of medications ilsa procedure disc ussed. All questions answered. I have spent less than 30 minutes on patient care today. Dr Arevalo was available by phone for the evaluation of this patient. The time was used to review the medical records including relevant urine studies and Prescription history (MAPs), review of the available imaging, evaluation and examination of the patient, coordination of care with the medical staff and if applicable referring physicians, as well as creation of the medical record PQRS Narrative: Smoking Status Current every day smoker Hx Alcohol Use (MH) No Home Medications: Ambulatory Orders Gabapentin [Neurontin] 400 mg PO TID 07/23/19 HYDROcodone/APAP 10-325MG [[place] 10-325] 1 tab PO Q4HR PRN 07/23/19 Omeprazole 20 mg PO DAILY PRN 07/23/19 SUMAtriptan succinate [Imitrex] 50 mg PO ONCE PRN 07/23/19 Meloxicam [Mobic] 7.5 mg PO BID 02/16/23 Sinus Medication 1 tab PO DAILY PRN 02/16/23 lisinopriL [Zestril] 20 mg PO BID 09/19/23 Controlled Substance Measures - Controlled Substance Measures Is patient prescribed a controlled substance at discharge?: No
== END ==
LOC: PNWHC3 13:09
PROVIDERS: ATTEND Specialist
DX: M51.36 Other intervertebral disc degeneration, lumbar region (principal); M47.816 Spondylosis without myelopathy or radiculopathy, lumbar region; G89.29 Other chronic pain; F17.200 Nicotine dependence, unspecified, uncomplicated; Z88.5 Allergy status to narcotic agent
CPT/HCPCS: 99211

== ENCOUNTER 2024-10-22 12:21 | Day surgery (SDC) | payer OTHER ==
[2024-10-17 13:05] VITALS: BMI 33.9
[~2024-10-22 12:21] MED LIST changes: -LACTATED RINGERS 1,000 ML IV SCH
[2024-10-22 13:01] VITALS: TEMP 97.5
[2024-10-22] MEDS: IV FLUID CONTINUATION 1,000 ML IV ONE ×2 (13:09→14:07)
[2024-10-22] MEDS: LACTATED RINGERS 1,000 ML IV SCH (13:10)
[2024-10-22] MEDS ORDERED: PROPOFOL 10 MG/ML 20 ML VIAL IV ONE (14:11)
[2024-10-22] MEDS ORDERED: LIDOCAINE 1% INJ 10MG/ML (20 ML MDV) ONE (14:11)
--- NOTE | 2024-10-22 14:39 | P.PCN ---
Date of Procedure: 10/22/24 Procedure(s) Performed: BRIEF HISTORY: Patient is a 64-year-old pleasant white male scheduled for an elective colonoscopy as a part of screening for colon cancer/positive Cologuard. PROCEDURE PERFORMED: Colonoscopy polypectomy and Endo Clip placement. PREOPERATIVE DIAGNOSIS: Screening for colon cancer/positive Cologuard. IV sedation per Anesthesia. PROCEDURE: After informed consent was obtained, the patient, was brought into the endoscopy unit. IV sedation was administered by Anesthesia under continuous monitoring. Digital rectal examination was normal. Initially the Olympus CF-160 flexible video colonoscope was then inserted in the rectum, gradually advanced into the cecum without any difficulty. Careful examination was performed as the scope was gradually being withdrawn. Ileocecal valve and the appendiceal orifice were visualized and appeared normal. Prep was excellent. Mucosa of the cecum, polyps measuring between 5 mm, 1 cm and 2 cm in size all of which were removed by snare polypectomy and complete polypectomy accomplished. The hepatic rectal there was a 2.5 cm broad-based polyp that was removed by piecemeal snare polypectomy followed by Endo Clip placement. Complete polypectomy was accomplished. Rest of thetransverse colon, descending colon, sigmoid colon, and rectum appeared normal. There was a 5 mm, 1 cm and 1.5 cm polyp removed by snare polypectomy. Retroflexion was performed in the rectum and no lesions were seen. The patient tolerated the procedure well. IMPRESSION: 5 mm, 1 cm and 2 cm broad-based cecal polyp status post snare polypectomy 2.5 cm broad-based hepatic rectal polyp status post piecemeal snare polypectomy followed by Endo Clip placement and complete polypectomy accomplished 5 mm, 1 cm and 1.5 cm rectal polyp status post polypectomy RECOMMENDATIONS: Findings of this examination were discussed with the patient as well as his family. He was advised to follow-up with the biopsy results. If the biopsy reveals adenoma he can have repeat colonoscopy in 3 years..
[2024-10-22 14:47] VITALS: RESP 16
[2024-10-22 15:10] VITALS: BP 132/80; PULSE 79
== END 2024-10-22 15:30 | disposition home or self-care (01) ==
LOC: ORWHC2ENDO 12:21
PROVIDERS: ATTEND Internal Medicine Gastroenterology
DX: D12.0 Benign neoplasm of cecum (principal); D12.3 Benign neoplasm of transverse colon; K62.1 Rectal polyp; I10 Essential (primary) hypertension; G43.909 Migraine, unspecified, not intractable, without status migrainosus; K21.9 Gastro-esophageal reflux disease without esophagitis; F17.210 Nicotine dependence, cigarettes, uncomplicated; Z79.899 Other long term (current) drug therapy; Z88.5 Allergy status to narcotic agent
CPT/HCPCS: 88305; 45385; J2003; J2704

== ENCOUNTER → 2025-01-20 | Outpatient (CLI) | payer OTHER ==
--- NOTE | 2025-01-20 17:15 | CTL ---
EXAMINATION TYPE: CT Low Dose Lung DATE OF EXAM ORDERED: 01/20/2025 COMPARISON: CT Low Dose Lung 07/25/2023, 07/17/2022, 07/14/2021 CLINICAL INDICATION: Male, 64 years old with history of Z12.2 SCREENING FOR MALIG NEOPLSM F17.210 [place] DEP; [facility], Current smoker. 1PPD x40yrs., Lung cancer screening, History of Smoking/tobacco use. TECHNIQUE: Low dose computed tomography scan was performed through the chest at 1 mm thick sections a nd reconstructed images in multiple planes at 1 mm and [address] DLP: [address] CTDI: 3.03 mGy Automated exposure control for dose reduction was used. CT DIAGNOSTIC QUALITY: Satisfactory FINDINGS: Nodules: Stable right lower lobe calcification granuloma. Stable right upper lobe peripheral 4 mm pulmonary nodule (series 8, image 23). Stable right upper lobe 3.5 mm pulmonary nodule (series 8, image 25). Stable right upper lobe solid 8.9 mm pulmonary nodule (series 8, image 24). No new or enlarging pulmonary nodules. LUNGS: COPD: Severity: None Fibrosis: Severity: None Lymph nodes: None Other findings: None RIGHT PLEURAL SPACE: Effusion: None Calcification: None Thickening: None Pneumothorax: None LEFT PLEURAL SPACE: Effusion: None Calcification: None Thickening: None Pneumothorax: None HEART: Heart Size: Normal Coronary Calcification: None Pericardial Effusion: None OTHER FINDINGS: Upper abdomen: Liver is diffusely hypoattenuating. Bony thorax: None Supraclavicular region: None Other: Bilateral gynecomastia. IMPRESSION: 1. Few stable pulmonary nodules from prior exams dating back to 2020. No new or enlarging pulmonary n odules. 2. Hepatic steatosis. CT LUNG RAD AND CT CHEST RECOMMENDATION: Lung-Rad 2 Benign Appearance or Behavior: Continue annual sc reening with LDCT in 12 months. S Modifier (other clinically significant findings): None [facility], , 01/20/2025 5:13 PM
== END | disposition home or self-care (01) ==
LOC: RADCTMAIN 16:38
PROVIDERS: ATTEND Family Medicine
DX: Z12.2 Encounter for screening for malignant neoplasm of respiratory organs (principal); F17.210 Nicotine dependence, cigarettes, uncomplicated; R91.8 Other nonspecific abnormal finding of lung field; K76.0 Fatty (change of) liver, not elsewhere classified
CPT/HCPCS: 71271